=== PATIENT | female | born 1985 | race African-American/Black ===

== ENCOUNTER 2017-05-16 20:37 | Emergency (ER) | payer OTHER ==
--- NOTE | ~2017-05-16 | CR170 ---
[facility] A Service of [facility] & [facility] RADIOLOGY TEXT RESULTS PATIENT: DARY TAYLOR LOCATION: [facility] : 81 UNIT #: [id number] AGE: [address]: Jerica Santillan MD SEX: F ORDER DR: [id number] [facility] [address] [place], [place] [address] [id number] E MR#: [id number] Acc #: [id number] NAME: DARY TAYLOR : 1985 SEX: F STUDY DATE/TIME: 05/17/2017 0:18 UNIT: MOHSEN ROOM: STUDY DESCRIPTION: CR Knee 2 Views Rt Attending Physician: Jerica Santillan M.D. Ordering Physician: Jerica Santillan M.D. Primary Care Physician: [facility] MEDICAL IMAGING REPORT This report is preliminary unless electronic signature is present EXAM Right knee HISTORY Right knee pain swelling for 1 week. FINDINGS AP and lateral projection of the knee shows smooth articular anatomy without indication of fracture or dislocation at the major weight-bearing surface of the knee. There is no indication of radiopaque foreign body about the knee surface or joint effusion. IMPRESSION Normal knee. Dictated by... Sreekanth Chris M.D. THIS IS AN ELECTRONICALLY VERIFIED REPORT Sreekanth Chris M.D. at 05/17/2017 1:42 PM STEVEN/joyce TD: 05/17/2017 13:18 JOB #: [id number] MEDICAL IMAGING REPORT Page 1 of 1 COPY
[~2017-05-16 20:37] MED LIST: NO MEDICATIONS
== END 2017-05-17 01:15 | disposition home or self-care (01) ==
LOC: CED 20:37
DX: M25.561 Pain in right knee (principal); F17.200 Nicotine dependence, unspecified, uncomplicated
CPT/HCPCS: 73560; 99283